=== PATIENT | male | born 1990 | race Caucasian/White ===

== ENCOUNTER → 2017-06-27 | Outpatient (CLI) | payer OTHER ==
[2017-06-27 10:29] LABS: T4, Free (Free Thyroxine) 0.79 ng/dL (0.78-2.19)
[2017-06-27 17:22] LABS: Thyroid Peroxidase Antibodies 265.6 U/mL (0.0-60.0)
== END | disposition home or self-care (01) ==
LOC: LABWHC1 09:24
PROVIDERS: ATTEND Internal Medicine Endocrinology, Diabetes & Metabolism
DX: E03.8 Other specified hypothyroidism (principal)
CPT/HCPCS: 36415; 84439; 84443; 84480; 86376